=== PATIENT | female | born 1945 | race Caucasian/White ===

== ENCOUNTER 2017-07-27 22:40 | Inpatient (IN) | payer SELFPAY ==
[~2017-07-27] VITALS: Ht 165.1 cm; Wt 75.3 kg
[2017-07-27 22:53] VITALS: BP 136/44
[2017-07-27] MEDS ORDERED: SYN.1 PO (22:57)
[2017-07-27] MEDS ORDERED: LISI-420 PO (22:58)
[2017-07-27] MEDS ORDERED: SITA25TA3 PO (22:59)
[2017-07-27] MEDS ORDERED: METF1000 PO (22:59)
--- NOTE | 2017-07-27 23:01 | NUR ---
PT TAKEN TO BED 3
--- NOTE | 2017-07-27 23:02 | NUR ---
72 Y/O F W/C/O BRADYCARDIA, DIZZINESS, N/V X 30 MINUTES AGO. MED HX HTN, DM, HIGH CHOLESTEROL, HYPOTHYROIDISM. FAMILY STATES THERE WAS A SITUATION AT HOME THAT MADE PT UPSET, THUS CAUSING THE DIZZNESS. FAMILY DENIES ANY LOC/KO.
[2017-07-27] MEDS ORDERED: ATROPINE 1 MG/10 ML SYR IVP ONE (23:30)
[2017-07-28] VITALS (10 sets, daily range): BP systolic 129–155; BP diastolic 55–77
--- NOTE | 2017-07-28 00:03 | NUR ---
Dr. Carlson evaluating patient at bedside.
[2017-07-28] MEDS ORDERED: ONDANSETRON 4 MG/2 ML VIAL IVP ONE (00:05)
[2017-07-28 00:21] LABS: HEMATOCRIT 43.7 % (36-48); HEMOGLOBIN 14.3 g/dL (12.0-16.0); MEAN CORPUSCULAR HEMOGLOBIN 30 pg (27-31); MEAN CORPUSCULAR HGB CONC 33 g/dL (33-37); MEAN CORPUSCULAR VOLUME 93 fL (80-94); PLATELET COUNT (AUTO) 247 K/uL (140-450); RED BLOOD CELL COUNT(AUTO) 4.71 MIL/uL (4.20-5.40); RED CELL DISTRIBUTION WIDTH 13.5 % (11.6-13.7); WHITE BLOOD COUNT (AUTO) 10.5 K/uL (4.8-10.8)
[2017-07-28 00:23] LABS: LYMPHOCYTES % (MANUAL) 7 % (20-46); MONOCYTES % (MANUAL) 5 % (5-12)
[2017-07-28 00:28] LABS: PROTHROMBIN TIME 10.2 secs (10.8-13.4)
[2017-07-28 00:31] LABS: ALBUMIN 3.8 g/dL (3.4-5.0); ANION GAP 10.6 (8-16); ASPARTATE AMINOTRANSFERASE 197 U/L (15-37); CARBON DIOXIDE 22.2 mmol/L (21-32); CHLORIDE 96 mmol/L (98-107); CREATININE 1.7 mg/dL (0.6-1.3); GLUCOSE 246 mg/dL (74-106); TOTAL BILIRUBIN 0.4 mg/dL (0.0-1.0); UREA NITROGEN, BLOOD 36 mg/dL (7-18)
[2017-07-28 00:36] LABS: POTASSIUM 6.8 mmol/L (3.5-5.1); SODIUM SERUM 122 mmol/L (136-145)
[2017-07-28] MEDS ORDERED: VANCOMYCIN 1,000 MG in DEXTROSE 5% 250 ML IV ONE (00:45)
[2017-07-28] MEDS ORDERED: CALCIUM GLUCONATE 10% 1000 MG/10 ML VIAL IVP ONE (00:45)
[2017-07-28] MEDS ORDERED: DEXTROSE 50% 50 ML SYR IVP ONE (00:45)
[2017-07-28] MEDS ORDERED: INSULIN HUMAN REGULAR 100 UNITS/ML 10 ML VIAL IVP ONE (00:45)
[2017-07-28] MEDS ORDERED: PIPERACILLIN/TAZOBACTAM 3.375 GM in DEXTROSE 5% 50 ML IV ONE (00:45)
[2017-07-28] MEDS ORDERED: PIPERACILLIN/TAZOBACTAM 3.375 GM VIAL IV ONE (01:00)
[2017-07-28] MEDS ORDERED: CLOPIDOGREL 75 MG TAB PO ONE (01:10)
[2017-07-28] MEDS ORDERED: ASPIRIN 325 MG TAB PO ONE (01:10)
[2017-07-28] MEDS ORDERED: VANCOMYCIN 1,000 MG VIAL ONE (01:54)
--- NOTE | 2017-07-28 02:16 | NUR ---
ADMITTING MD AT BEDSIDE FOR REVAL
[2017-07-28 02:27] LABS: ANION GAP 15.9 (8-16); CARBON DIOXIDE 20.4 mmol/L (21-32); CHLORIDE 106 mmol/L (98-107); CREATININE 1.5 mg/dL (0.6-1.3); GLUCOSE 226 mg/dL (74-106); POTASSIUM 5.3 mmol/L (3.5-5.1); SODIUM SERUM 137 mmol/L (136-145); UREA NITROGEN, BLOOD 34 mg/dL (7-18)
[2017-07-28] MEDS ORDERED: ACETAMINOPHEN 325 MG TAB PO PRN (02:45)
[2017-07-28] MEDS ORDERED: HYDROcodone/APAP 7.5/325 MG 1 TAB PO PRN (02:45)
[2017-07-28] MEDS ORDERED: ONDANSETRON 4 MG/2 ML VIAL IVP PRN (02:45)
[2017-07-28] MEDS ORDERED: ENOXAPARIN 60 MG/0.6 ML SYR SUBQ SCH (03:05)
--- NOTE | 2017-07-28 03:10 | NUR ---
Patient will be admitted to care of DR ANGUIANO . Admited to ICU 5. Will go to room 5. Belongings list completed. Report to CECILE VALENTIN .
[2017-07-28] MEDS ORDERED: NACL 0.9% 2,500 ML IV ONE (03:20)
[2017-07-28] MEDS ORDERED: VANCOMYCIN PER PHARMACY MC PRN (03:25)
[2017-07-28] MEDS ORDERED: ENOXAPARIN 60 MG/0.6 ML SYR SUBQ ONE (03:25)
[2017-07-28] MEDS ORDERED: SODIUM POLYSTYRENE 15 GM/60 ML UDBTL PO SCH (03:35)
[2017-07-28] MEDS ORDERED: MECLIZINE 25 MG TAB PO PRN (03:35)
[2017-07-28] MEDS ORDERED: NITROGLYCERIN 0.4 MG TAB SL PRN (03:35)
--- NOTE | 2017-07-28 03:35 | NUR ---
RECEIVED REPORT FROM SAI VALENTIN. PATIENT ARRIVED TO UNIT FROM ER VIA [facility] WITH SAI VALENTIN AND ESTHER EMT. PATIENT IS AWAKE, ALERT, AND IS PRIMARILY ZAMBIAN SPEAKING. PATIENT ABLE TO SELF AMBULATE FROM [facility] TO ICU BED 5 WITH NO INCIDENT. BREATH SOUNDS ARE DIMINISHED. BOWEL SOUNDS ARE HYPERACTIVE. THERE IS A #20 IN THE LEFT AC. SITE IS DRY, INTACT, AND PATENT. ORIENTED PATIENT TO UNIT. PATIENT VERBALIZED UNDERSTANDING. HOB AT 30 DEGREES WITH BED IN LOW POSITION. CONTINUE TO MONITOR PATIENT.
[2017-07-28 03:40] LABS: CHOL/HDL RATIO 2.8 (1-4.5); FREE T4 (FREE THYROXINE) 1.53 ng/dL (0.76-1.46); MAGNESIUM 1.6 mg/dL (1.8-2.4); PHOSPHORUS 3.9 mg/dL (2.5-4.9); THYROID STIMULATING HORMONE 1.64 uIU/mL (0.34-3.74)
[2017-07-28] MEDS ORDERED: FUROSEMIDE 40 MG/4 ML VIAL IVP SCH (03:40)
--- NOTE | 2017-07-28 04:50 | NUR ---
16FR GOLDSMITH CATHETER INSERTED. PATIENT TOLERATED WELL. CONTINUE TO MONITOR PATIENT.
[2017-07-28] MEDS: PIPER/TAZO 3.375GM/D5W PREMIX 50 ML IV SCH ×3 (05:00→22:55)
--- NOTE | 2017-07-28 05:30 | NUR ---
RESIDENT DR. FINLEY AT BEDSIDE WITH US CLAY MOLDER FOR CENTRAL LINE PLACEMENT. CONSENT OBTAINED.
[2017-07-28 06:25] LABS: BASOPHILS # (AUTO) 0.4 K/uL (0.00-0.22); BASOPHILS % (AUTO) 4.4 % (0.0-2.0); EOSINOPHILS # (AUTO) 0.1 K/uL (0-0.4); EOSINOPHILS % (AUTO) 0.6 % (0.0-4.0); HEMOGLOBIN 12.1 g/dL (12.0-16.0); LYMPHOCYTES % (AUTO) 11.2 % (20.5-51.1); MEAN CORPUSCULAR HEMOGLOBIN 30 pg (27-31); MEAN CORPUSCULAR HGB CONC 33 g/dL (33-37); MEAN CORPUSCULAR VOLUME 92 fL (80-94); MONOCYTES # (AUTO) 0.6 K/uL (0.8-1.0); MONOCYTES % (AUTO) 6.9 % (1.7-9.3); NEUTROPHILS # (AUTO) 6.9 K/uL (1.8-7.7); NEUTROPHILS % (AUTO) 76.9 % (42.2-75.2); PLATELET COUNT (AUTO) 212 K/uL (140-450); RED BLOOD CELL COUNT(AUTO) 4.01 MIL/uL (4.20-5.40); RED CELL DISTRIBUTION WIDTH 13.3 % (11.6-13.7)
[2017-07-28 06:48] LABS: ANION GAP 13.1 (8-16); CARBON DIOXIDE 20.4 mmol/L (21-32); CHLORIDE 107 mmol/L (98-107); CREATININE 1.1 mg/dL (0.6-1.3); GLUCOSE 160 mg/dL (74-106); POTASSIUM 4.5 mmol/L (3.5-5.1); SODIUM SERUM 136 mmol/L (136-145); UREA NITROGEN, BLOOD 27 mg/dL (7-18)
--- NOTE | 2017-07-28 07:27 | NUR ---
PATIENT RESTING IN BED. ALL NEEDS ATTENDED TO DURING SHIFT. ENDORSED CONTINUITY OF CARE TO DANIEL VALENTIN.
--- NOTE | 2017-07-28 07:30 | NUR ---
RECEIVED REPORT FROM APPEALS AND GENERALIST CLERK NURSE CECILE, PT AWAKE, ALERT AND ORIENTED X4. VERBALLY RESPONSIBLE, PT ON PACER 12MA, 60PPM. BILATERAL LUNG SOUND CLEAR WITH CONTINUE O2 2L/MIN VIA NC. PERIPHERAL IV LINE ON LEFT ANTECUBITAL 20G, CENTRAL LINE ON RIGHT INTERNAL JUGULAR [id number]. PT IS ON NS BOLUS 2500ML. PT IS ON GOLDSMITH CATH 16FR WITH YELLOW COLORED URINE DRAIN. NO ACUTE DISTRESS NOTED, PT DENIES PAIN AT THIS TIME. CONTINUE TO MONITOR.
[2017-07-28] MEDS: LEVOTHYROXINE 0.1 MG TAB PO SCH (07:33)
--- NOTE | 2017-07-28 07:37 | NUR ---
PATIENT HAS BEEN SCREENED AND CATEGORIZED HIGH NUTRITION RISK. PATIENT WILL BE SEEN WITHIN 1-2 DAYS OF ADMISSION. 07/28/17 - 07/29/17 LESLIE BEASLEY MBA, RD
[2017-07-28] MEDS: NACL 0.9% 1,000 ML IV SCH ×3 (07:46→22:59)
[2017-07-28] MEDS: LACTOBACILLUS RHAMNOSUS GG 1 EACH CAP PO SCH (08:44)
[2017-07-28] MEDS: ASPIRIN 81 MG TAB.CHEW PO SCH (08:44)
[2017-07-28] MEDS: PANTOPRAZOLE 40 MG INJ VIAL IVP SCH (08:45)
[2017-07-28] MEDS: DOCUSATE SODIUM 100 MG GELCAP PO SCH ×2 (08:45→22:57)
--- NOTE | 2017-07-28 08:50 | NUR ---
DR. MEDINA CALLED. UPDATED ON PT'S CONDITION. PER DR. MEDINA EXTERNAL PACEMAKER TURNED OFF. PT IN SR WITH 2 DEGREE AV WATSON, MOBITZ TYPE 1. HR IN THE 40'S. PT DENIES ANY DISCOMFORTS. BP 150/67. Addendum: 07/28/17 at 1344 by Nieves Spencer RN SB COMPLETE HEART BLOCK NOT SR WITH 2ND DEGREE AV BLOCK
[2017-07-28] MEDS ORDERED: MAG SULF 2000 MG/WATER PREMIX 50 ML IV SCH (09:00)
[2017-07-28] MEDS ORDERED: METOPROLOL 25 MG TAB PO SCH (09:00)
[2017-07-28] MEDS ORDERED: LISINOPRIL 20 MG TAB PO SCH (09:00)
--- NOTE | 2017-07-28 09:00 | NUR ---
MEDICATION GIVEN TO PT, TOLERATED WELL. PT CONSUMED 25% BREAK FAST. CONTINUE TO MONITOR.
[2017-07-28] MEDS: metFORMIN 500 MG TAB PO SCH ×2 (09:22→22:57)
--- NOTE | 2017-07-28 10:10 | NUR ---
PT DONE WITH CT SCAN TO BRAIN WITHOUT CONTRAST, PT TOLERATED WELL, NO ACUTE DISTRESS, DENIES ANY DISCOMFORT NOTED. HR IN 40'S WITHOUT PACER, BP 155/65 CONTINUE TO MONITOR.
[2017-07-28] MEDS: BLOOD GLUCOSE MONITORING 1 DEV DEV FS SCH ×3 (11:53→20:00)
--- NOTE | 2017-07-28 12:30 | NUR ---
CFA SHOWS SB WITH 2ND DEGREE AV BLOCK HR 38 TO 39/MIN. PT DENIES ANY CHEST PAINS. NO DIZZINESS. BP 140/77. EXTERNAL PACEMAKER TURNED BACK ON MA 12, RATE 60/MIN. Addendum: 07/28/17 at 1318 by Nieves Spencer RN 3RD DEGREE AV BLOCK, NOT 2ND DEGREE
--- NOTE | 2017-07-28 13:19 | NUR ---
AT BEDSIDE TO CHECK PT, WILL FOLLOW THE ORDER.
--- NOTE | 2017-07-28 13:30 | NUR ---
TURN OFF THE EXTERNAL PACEMAKER PER 'S ORDER. PT'S HR IS IN 40'S, NO ACUTE DISTRESS, PT DENIES CHEST PAIN, NO DIZZINESS, NO N/V NOTED. Addendum: 07/28/17 at 1557 by Cecelia Kate RN ADDITIONAL ORDER FROM DR. MEDINA: TURN BACK ON PACE MAKER IF PT' HR BELOW 35 AND PT HAS CHEST PAIN, SOB, OR LOSS OF CONSCIOUSNESS.
--- NOTE | 2017-07-28 15:30 | NUR ---
FAMILY MEMBERS ARE BEDSIDE AT THIS TIME. NO ACUTE DISTRESS NOTED.
--- NOTE | 2017-07-28 16:30 | NUR ---
PT'S BS CHECKED. OFFER ORAL CARE, PT BRUSHED HER TEETH BY HERSELF. DENIES CHEST PAIN, NO SOB, HR IS IN 40'S.CONTINUE TO MONITOR.
[2017-07-28 17:52] LABS: BILIRUBIN,URINE NEGATIVE (NEGATIVE); BLOOD, URINE 3+ (NEGATIVE); COLOR,URINE YELLOW (YELLOW); LEUKOCYTE ESTERASE ,URINE NEGATIVE (NEGATIVE); NITRITE, URINE NEGATIVE (NEGATIVE); PH,URINE 5.5 (5.0-9.0); UGLUCOSE NEGATIVE (NEGATIVE)
[2017-07-28 18:44] LABS: APPEARANCE,URINE HAZY (CLEAR); RBC,URINE 20-50 /HPF (0-5); WBC,URINE 0-5 (RARE) /HPF (0-5)
--- NOTE | 2017-07-28 19:20 | NUR ---
REPORT TAKEN FROM DAY NURSE WITH RESUME CARE, PT IS ON CVP READING VIA CENTRAL LINE AT RIGHT IJ, LINE PATENT , DRESSING IN TACH. PT'S A,A,O X 4 WITH SLOV[place] SPEAKING ONLY, RESPOND WELL. GOLDSMITH CATH IN SITU AND GRAVITY TO FLOOR.
--- NOTE | 2017-07-28 19:20 | NUR ---
PATIENT RESTING IN BED. ENDORSED CONTINUITY OF CARE TO JOVAN VALENTIN. VS IS STABLE.
--- NOTE | 2017-07-28 20:00 | NUR ---
ORAL CARE DONE . REPOSITION DONE
--- NOTE | 2017-07-28 21:00 | NUR ---
DUE MEDICATIONS GIVEN WITH NO REACTION NOTED.
[2017-07-28] MEDS: ATORVASTATIN 20 MG TAB PO SCH (22:57)
--- NOTE | 2017-07-28 23:30 | NUR ---
PT'S ASLEEP, NO CP NO NAUSEA, NO VOMITING RESTING COMFORTABLE WITH SELF TURN, TOLERATING WELL.
[2017-07-29] VITALS (12 sets, daily range): BP systolic 108–161; BP diastolic 4–71
--- NOTE | 2017-07-29 | NUR ---
ACCU CHECK DONE RESULT DOCUMENT WITH NO ACTION NEEDED.
[2017-07-29] MEDS: BLOOD GLUCOSE MONITORING 1 DEV DEV FS SCH ×6 (00:42→20:02)
[2017-07-29] MEDS: VANCOMYCIN 1GM/DEXT 5% PREMIX 200 ML IV SCH (01:24)
--- NOTE | 2017-07-29 02:00 | NUR ---
REPOSITION DONE , NO C/O NAUSEA, VOMITING AND NO STRESS NOTED.
--- NOTE | 2017-07-29 04:00 | NUR ---
ACCU CHECK DONE, RESLT DOCUMENT. TOTAL BEDBATH GIVEN, ORAL CARE DOEN, SKIN CARE, PRIANAL CARE DONE. KEEP PT COMFORTAQBLE WITH NO CP, NO NAUSEA, NO VOMITING NO SOB NOTED. PT'S COMFORTABLE WITH REST AND ASLEEP ON HOB AT 30 HEAD UP WITH TOLERATING WELL.
[2017-07-29] MEDS: PIPER/TAZO 3.375GM/D5W PREMIX 50 ML IV SCH ×3 (04:55→21:08)
--- NOTE | 2017-07-29 06:00 | NUR ---
TOTAL CARE DONE , KEEP IN 30 HOB UP WITH TOLERATING WELL
[2017-07-29 06:18] LABS: BASOPHILS # (AUTO) 0.4 K/uL (0.00-0.22); BASOPHILS % (AUTO) 3.8 % (0.0-2.0); EOSINOPHILS # (AUTO) 0.1 K/uL (0-0.4); EOSINOPHILS % (AUTO) 0.6 % (0.0-4.0); HEMATOCRIT 38.1 % (36-48); HEMOGLOBIN 12.3 g/dL (12.0-16.0); LYMPHOCYTES # (AUTO) 1.1 K/uL (2.5-16.5); LYMPHOCYTES % (AUTO) 11.3 % (20.5-51.1); MEAN CORPUSCULAR HEMOGLOBIN 30 pg (27-31); MEAN CORPUSCULAR HGB CONC 32 g/dL (33-37); MEAN CORPUSCULAR VOLUME 92 fL (80-94); MONOCYTES # (AUTO) 0.6 K/uL (0.8-1.0); MONOCYTES % (AUTO) 6.2 % (1.7-9.3); NEUTROPHILS # (AUTO) 7.2 K/uL (1.8-7.7); NEUTROPHILS % (AUTO) 78.1 % (42.2-75.2); PLATELET COUNT (AUTO) 207 K/uL (140-450); RED BLOOD CELL COUNT(AUTO) 4.14 MIL/uL (4.20-5.40); RED CELL DISTRIBUTION WIDTH 14.1 % (11.6-13.7); WHITE BLOOD COUNT (AUTO) 9.4 K/uL (4.8-10.8)
[2017-07-29 06:53] LABS: CARBON DIOXIDE 23.6 mmol/L (21-32); CHLORIDE 107 mmol/L (98-107); CREATININE 0.9 mg/dL (0.6-1.3); GLUCOSE 156 mg/dL (74-106); POTASSIUM 3.6 mmol/L (3.5-5.1); SODIUM SERUM 138 mmol/L (136-145); UREA NITROGEN, BLOOD 18 mg/dL (7-18)
[2017-07-29 07:02] LABS: MAGNESIUM 1.8 mg/dL (1.8-2.4); PHOSPHORUS 3.1 mg/dL (2.5-4.9)
--- NOTE | 2017-07-29 07:30 | NUR ---
REPORT ENDORSE TO DAY NURSE RUIZ - RN WITH RESUME CARE.
--- NOTE | 2017-07-29 07:30 | NUR ---
RECEIVED REPORT FROM PM SHIFT. PT GCS 15. POLISH SPEAKING ONLY. BILATERAL PERRLA OBSERVED. DENIES CHEST PAIN. DENIES SOB. DENIES PAIN. DENIES NAUSEA. PT ON 2 L NC. TOLERATING WELL. BRADYCARDIA ON MONITOR. MD AWARE. ASYMPTOMATIC. SKIN INTACT. R IJ TRIPLE LUMEN NOTED. INTACT AND PATENT. BOWEL SOUND PRESENT X 4 QUADRANT. ABDOMEN SOFT, NONTENDER. GOLDSMITH CATHETER NOTED. DRAINING CLEAR, YELLOW URINE. FALL AND SAFETY PRECAUTION MAINTAINED. NO S/SX OF ACUTE DISTRESS NOTED. BED AT LOWEST SETTING. CALL LIGHT WITHIN REACH. WILL CONTINUE TO MONITOR FOR CHANGE.
[2017-07-29] MEDS: LEVOTHYROXINE 0.1 MG TAB PO SCH (07:39)
[2017-07-29] MEDS: NACL 0.9% 1,000 ML IV SCH ×3 (07:39→19:25)
--- NOTE | 2017-07-29 08:00 | NUR ---
PT EATING BREAKFAST. TOLERATING WELL.
[2017-07-29] MEDS: DOCUSATE SODIUM 100 MG GELCAP PO SCH ×2 (08:13→21:00)
[2017-07-29] MEDS: ASPIRIN 81 MG TAB.CHEW PO SCH (08:13)
[2017-07-29] MEDS: FUROSEMIDE 20 MG/2 ML VIAL IVP SCH (08:13)
[2017-07-29] MEDS: PANTOPRAZOLE 40 MG INJ VIAL IVP SCH (08:13)
[2017-07-29] MEDS: metFORMIN 500 MG TAB PO SCH ×2 (08:14→21:06)
[2017-07-29] MEDS: LACTOBACILLUS RHAMNOSUS GG 1 EACH CAP PO SCH (08:14)
--- NOTE | 2017-07-29 08:15 | NUR ---
MEDICATION ADMINISTERED ORDERED. TOLERATED WELL. WILL CONTINUE TO MONITOR FOR CHANGES.
[2017-07-29] MEDS: CALCIUM CARB/VIT-D 500 MG/200 IU 1 TAB PO SCH (09:04)
--- NOTE | 2017-07-29 09:55 | NUR ---
SPOKE WITH PT REGARDING SPUTUM COLLECTION VIA COMMISSARY PRODUCTION SUPERVISOR. PT STATES THAT SHE DOES NOT HAVE ANY PHLEGM. PER PT, WILL TELL STAFF WHEN SHE DOES HAVE PHLEGM.
--- NOTE | 2017-07-29 10:00 | NUR ---
AT BEDSIDE TO SEE PT. WILL F/U WITH NEW ORDERS.
--- NOTE | 2017-07-29 11:00 | NUR ---
PT DENIES SOB, DENIES CHEST PAIN. SLEEPING COMFORTABLY AT BEDSIDE.
--- NOTE | 2017-07-29 11:00 | NUR ---
07/29/17 RD INITIAL ASSESSMENT COMPLETED PLEASE REFER TO NUTRITION ASSESSMENT UNDER CARE ACTIVITY FOR ESTIMATED NUTRITIONAL NEEDS. RD RECOMMENDATIONS: 1. [facility] TOLERATED. 2. CONSULT RDN PRN. 3. RD WILL F/U 3-5 DAYS; MODERATE RISK. ANDRES PARKS MS, RDN
--- NOTE | 2017-07-29 12:00 | NUR ---
PT UP IN BED EATING LUNCH. TOLERATING WELL.
--- NOTE | 2017-07-29 13:15 | NUR ---
PT AMBULATE FROM BED TO COMMODE. VERY SMALL AMOUNT OF BM NOTED AFTER. PT SELF PERFORMED DEE CARE. AMBULATE WITH STEADY GAIT BACK TO BED. VITAL SIGNS WITHIN NORMAL. WILL CONTINUE TO ENCOURAGE INDEPENDENT ADLS AND MOBILITY.
--- NOTE | 2017-07-29 13:30 | NUR ---
SPOKE TO DR. GOLD REGARDING IV MAINTENENCE Addendum: 07/29/17 at 1554 by Jose Alfredo Blackwell RN REGARDING IV FLUIDS. PER WILL KEEP RATE IS UNTIL FURTHER ORDERS.
--- NOTE | 2017-07-29 14:00 | NUR ---
PT RESTING IN BED. NO S/SX OF ACUTE DISTRESS NOTED. WILL CONTINUE TO MONITOR.
--- NOTE | 2017-07-29 15:00 | NUR ---
PT DENIES CHEST PAIN, DENIES SOB, DENIES PAIN. WILL CONTINUE TO MONITOR.
--- NOTE | 2017-07-29 16:30 | NUR ---
PT ATE DINNER. TOLERATED WELL.
--- NOTE | 2017-07-29 17:00 | NUR ---
PT A/O X4. DENIES PAIN. DENIES CHEST PAIN. DENIES SOB.
--- NOTE | 2017-07-29 18:00 | NUR ---
FAMILY AT BEDSIDE TO SEE PT. NO S/SX OF ACUTE DISTRESS NOTED. WILL CONTINUE TO MONITOR.
--- NOTE | 2017-07-29 19:17 | NUR ---
REPORT TAKEN FROM DAY NURSE AUGUSTO- RN WITH RESUME CARE. PT'S STEP DOWN TO TELE WITH MAY MOVE OUT IN THE MORNING DUE TO LIABLE FOR BRADYCARDIA. PT'S A,A,O X 4 WITH AZERI SPEAKING ONLY. PT'S RESTING COMFOETABLE WITH NO CP, NO SOB, NO DISTRESS NOTED.
--- NOTE | 2017-07-29 19:18 | NUR ---
REPORT GIVEN TO HOMERO TAMAYO. PT IS STABLE.
--- NOTE | 2017-07-29 19:38 | NUR ---
PT AMBULATE TO BEDSIDE COMMODE , HAD BOWEL MOVEMENT X 1 WITH TOLERATING WELL. NO CP. NO SOB. NO DISTRESS NOTED.
--- NOTE | 2017-07-29 20:00 | NUR ---
PT IS RESTING COMFORTABLE WITH RENDING CARE DONE .SKIN CARE DONE
[2017-07-29] MEDS: ATORVASTATIN 20 MG TAB PO SCH (21:06)
--- NOTE | 2017-07-29 22:23 | NUR ---
REPORT CALL AND ENDORSE TO ROSHAN Haddad RN WITH RESUME CARE. PT WILL CONTINUE PRESENT TREATMENT . NOTE SPECIALIST NEED TO FOLLOW UP IN THE SUNDAY MORNING. PT'S AWAKE, ALERT, ORIENTED X 4 WITH TAMAZIGHT ONLY, AMBULATE UP TO BEDSIDE COMMODE. ORALLY TAKEN WELL. PT HAD NIGHT SNACK WITH TOLERATING WELL. GOLDSMITH CATH SIZE 16 IN SITU WITH GRAVITY TO FLOOR. PT WILL MOVE TO ROOM 119 B WITH ACLS TRANSPORT , ACCOMPANY BY RONI Haddad RN WITH TEAM VIA NAEEM.
--- NOTE | 2017-07-30 00:05 | NUR ---
Patient's Plan of Care was discussed and reviewed with MONOGRAM MAKER: ROSHAN WARD.
[2017-07-30 00:08] VITALS: BP 127/45
--- NOTE | 2017-07-30 00:10 | NUR ---
PATIENT STABLE DENIES ANY SOB OR CHEST PAIN.PATIENT ABLE TO MAKE NEEDS KNOWN.SCD'S TO BLE IN PLACE.WILL CONTINUE TO MONITOR.CALL LIGHT WITHIN REACH.
[2017-07-30] MEDS: BLOOD GLUCOSE MONITORING 1 DEV DEV FS SCH ×3 (00:30→08:11)
--- NOTE | 2017-07-30 00:55 | NUR ---
MD RESIDENT FINLEY WAS CALLED AND IS AWARE THAT PATIENT'S HEART RATE IS 42 AND I ASKED HER IF SHE WOULD LIKE THE TELE PARAMETERS TO CHANGE SHE SAID YES PARAMETERS TO TELEMONITOR ARE FOLLOWS IF THE HR IS BELOW 40 IT WILL ALARM AND RESIDENT SHOULD BE NOTIFIED.YAA FABIAN AWARE.MD JONAS WILL PUT THE ORDER IN.
[2017-07-30] MEDS: VANCOMYCIN 1GM/DEXT 5% PREMIX 200 ML IV SCH (01:18)
--- NOTE | 2017-07-30 02:00 | NUR ---
PATIENT CONTINUES TO BE ASSISTED TO THE BEDSIDE COMMODE AND BACK TO BED PATIENT TOLERATES ACTIVITY WELL. PATIENT DENIES ANY PAIN OR SOB. CALL LIGHT WITHIN REACH.
--- NOTE | 2017-07-30 04:05 | NUR ---
PATIENT SLEEPING IN NO DISTRESS WILL CONTINUE TO MONITOR.
[2017-07-30 04:16] VITALS: BP 155/67
[2017-07-30] MEDS: PIPER/TAZO 3.375GM/D5W PREMIX 50 ML IV SCH (05:44)
[2017-07-30] MEDS: LEVOTHYROXINE 0.1 MG TAB PO SCH (05:47)
[2017-07-30 06:51] LABS: BASOPHILS # (AUTO) 0.2 K/uL (0.00-0.22); BASOPHILS % (AUTO) 1.8 % (0.0-2.0); EOSINOPHILS # (AUTO) 0.1 K/uL (0-0.4); EOSINOPHILS % (AUTO) 0.8 % (0.0-4.0); HEMATOCRIT 36.2 % (36-48); HEMOGLOBIN 12.2 g/dL (12.0-16.0); LYMPHOCYTES # (AUTO) 1.6 K/uL (2.5-16.5); LYMPHOCYTES % (AUTO) 15.5 % (20.5-51.1); MEAN CORPUSCULAR HEMOGLOBIN 31 pg (27-31); MEAN CORPUSCULAR HGB CONC 34 g/dL (33-37); MEAN CORPUSCULAR VOLUME 93 fL (80-94); MONOCYTES # (AUTO) 0.8 K/uL (0.8-1.0); MONOCYTES % (AUTO) 8.2 % (1.7-9.3); NEUTROPHILS # (AUTO) 7.3 K/uL (1.8-7.7); NEUTROPHILS % (AUTO) 73.7 % (42.2-75.2); PLATELET COUNT (AUTO) 198 K/uL (140-450); RED CELL DISTRIBUTION WIDTH 13.3 % (11.6-13.7)
--- NOTE | 2017-07-30 07:15 | NUR ---
PATIENT STABLE REPORT ENDORSED TO RN RODRIGUEZ SHE WILL RESUME CARE.
--- NOTE | 2017-07-30 07:15 | NUR ---
RECEIVED REPORT FROM SUPERVISOR BLASTING RN. PATIENT IS AAOX4, RESPIRATORY EFFORT IS EVEN AND UNLABORED. NO SIGNS AND SYMPTOMS OF ACUTE DISTRESS NOTED AT THIS TIME. PATIENT HAS RIGHT IJ, TRIPLE LUMEN CATHETER IN AND INFUSING NS AT 10 ML/HR. SITE IS CLEAN, DRY, PATENT AND INTACT. GOLDSMITH CATHETER TO GRAVITY IS IN PLACE. DISCUSSED PLAN OF CARE WITH PATIENT AND SHE VERBALIZED UNDERSTANDING. BED IN LOWEST POSITION, CALL LIGHT PLACED WITHIN REACH, SIDERAILS UP X2. WILL CONTINUE TO MONITOR.
[2017-07-30 07:18] LABS: ANION GAP 12.2 (8-16); CARBON DIOXIDE 22.5 mmol/L (21-32); CHLORIDE 108 mmol/L (98-107); CREATININE 1.1 mg/dL (0.6-1.3); GLUCOSE 169 mg/dL (74-106); POTASSIUM 3.7 mmol/L (3.5-5.1); SODIUM SERUM 139 mmol/L (136-145); UREA NITROGEN, BLOOD 21 mg/dL (7-18)
[2017-07-30 07:31] LABS: MAGNESIUM 1.6 mg/dL (1.8-2.4); PHOSPHORUS 3.1 mg/dL (2.5-4.9)
[2017-07-30 08:00] VITALS: BP 128/64
[2017-07-30] MEDS: ASPIRIN 81 MG TAB.CHEW PO SCH (09:52)
[2017-07-30] MEDS: DOCUSATE SODIUM 100 MG GELCAP PO SCH (09:52)
[2017-07-30] MEDS: CALCIUM CARB/VIT-D 500 MG/200 IU 1 TAB PO SCH (09:53)
[2017-07-30] MEDS: metFORMIN 500 MG TAB PO SCH (09:53)
[2017-07-30] MEDS: LACTOBACILLUS RHAMNOSUS GG 1 EACH CAP PO SCH (09:53)
[2017-07-30] MEDS: PANTOPRAZOLE 40 MG INJ VIAL IVP SCH (09:53)
[2017-07-30] MEDS: FUROSEMIDE 20 MG/2 ML VIAL IVP SCH (09:54)
--- NOTE | 2017-07-30 10:57 | NUR ---
CM NOTE SPOKE Benito/ ROXI, PIPE PRODUCTION WORKER FOR [facility]. AWARE OF REQUEST FOR TRANSFER FROM DR. NOGUERA AND WILL BE WORKING ON GETTING AN ICU BED. Addendum: 07/30/17 at 1524 by Jarek Menjivar RN PATIENT TO BE TRANSFERRED BY [facility] GOING TO [facility] ICU, BED 231. ETA 1300. DORCAS MERCADO & AYLEEN VALENTIN MADE AWARE. # FOR REPORT: [phone]. FACESHEET FAXED TO [facility] SUPERVISOR'S OFFICE / FAX# [phone]
[2017-07-30] MEDS ORDERED: ATOR20TA40 PO (11:51)
[2017-07-30] MEDS ORDERED: CALC-846 PO (11:51)
[2017-07-30] MEDS ORDERED: DOCU-299 PO (11:51)
[2017-07-30] MEDS ORDERED: GLUC-805 FS (11:51)
[2017-07-30] MEDS ORDERED: ASPI81CT95 PO (11:51)
[2017-07-30] MEDS ORDERED: LAS20I IVP (11:51)
[2017-07-30] MEDS ORDERED: ACET-1182 PO (11:51)
[2017-07-30] MEDS ORDERED: VANC1PLA9 IV (11:52)
[2017-07-30] MEDS ORDERED: Vancomycin Per Pharmacy MC (11:52)
[2017-07-30] MEDS ORDERED: NITR0.4T1 SL (11:52)
[2017-07-30] MEDS ORDERED: MECL-272 PO (11:52)
[2017-07-30] MEDS ORDERED: SYN.1 PO (11:52)
[2017-07-30] MEDS ORDERED: PANT40PD7 IVP (11:52)
[2017-07-30] MEDS ORDERED: SITA50TA3 PO (11:52)
[2017-07-30] MEDS ORDERED: LACT10CA PO (11:52)
[2017-07-30] MEDS ORDERED: PIPE1SOL IV (11:52)
[2017-07-30] MEDS ORDERED: ACET-9529 PO (11:52)
[2017-07-30] MEDS ORDERED: GLU500 PO (11:52)
[2017-07-30] MEDS ORDERED: ONDA2SOL45 IVP (11:52)
[2017-07-30 12:00] VITALS: BP 156/69
--- NOTE | 2017-07-30 12:15 | NUR ---
BS 181, PATIENT HAS NO COVERAGE.
[2017-07-30] MEDS ORDERED: AMLO10TA PO (12:29)
--- NOTE | 2017-07-30 13:15 | NUR ---
[facility] HERE TO HEALTH COMMUNICATIONS SPECIALIST PATIENT TO TRANSPORT TO [facility] FOR ICD PLACEMENT. PATIENT IS AAOX4, HAS NS INFUSING AT 10ML/HR TO RIGHT INTRAJUGULAR LINE, TRIPLE LUMEN. SALINE LOCKED ALL PORTS FOR TRANSFER. SITE IS CLEAN, DRY, PATENT AND INTACT. HAS NO SIGNS AND SYMPTOMS OF DISTRESS NOTED AT THIS TIME. GOLDSMITH CATHETER IS IN PLACE. GAVE REPORT TO [facility] STAFF. FAMILY AT THE BEDSIDE. ID BAND REMOVED. PATIENT REFUSED PNA, AND FLU VACCINE.
--- NOTE | 2017-07-30 13:30 | NUR ---
PT NOTES CHART REVIEWED, BUT UNABLE TO SEE PATIENT D/T BEING PREPARED FOR D/C FROM HOSPITAL, RN AND FAMILY AT BEDSIDE. PROVIDED EXERCISES HANDOUT FOR FAMILY FOR DAILY PARTICIPATION, FAMILY VERBALIZED UNDERSTANDING. PVEx1 Addendum: 07/30/17 at 1509 by Christine Gleason PT PHYSICAL THERAPY CO-SIGN The Physical Therapy Progress Notes documented by Flight Surgeon have been reviewed. Reviewed/Co-Signed by: Christine Gleason PT Documentation Done by: NIURKA GREENE PTA
[2017-07-30] MEDS ORDERED: VANCOMYCIN 1,250 MG in NACL 0.9% 250 ML IV SCH (17:00)
== END 2017-07-30 13:15 | disposition short-term general hospital (02) | DRG 871 ==
LOC: MED 22:40 → MIC 07-28 02:49 → MTU 07-29 22:58
PROVIDERS: ADMIT Family Medicine; ATTEND Family Medicine
PROC: 02HV33Z Insertion of Infusion Device into Superior Vena Cava, Percutaneous Approach (ICD-10-PCS; principal; 2017-07-28)
PROC: B543ZZA Ultrasonography of Right Jugular Veins, Guidance (ICD-10-PCS; 2017-07-28)
DX: A41.9 Sepsis, unspecified organism (principal); R65.21 Severe sepsis with septic shock; J69.0 Pneumonitis due to inhalation of food and vomit; J96.00 Acute respiratory failure, unspecified whether with hypoxia or hypercapnia; N17.0 Acute kidney failure with tubular necrosis; D68.59 Other primary thrombophilia; E11.51 Type 2 diabetes mellitus with diabetic peripheral angiopathy without gangrene; I50.43 Acute on chronic combined systolic (congestive) and diastolic (congestive) heart failure; I42.0 Dilated cardiomyopathy; E87.1 Hypo-osmolality and hyponatremia; N39.0 Urinary tract infection, site not specified; I44.2 Atrioventricular block, complete; E83.42 Hypomagnesemia; E87.5 Hyperkalemia; E78.00 Pure hypercholesterolemia, unspecified; E03.9 Hypothyroidism, unspecified; R74.0 Nonspecific elevation of levels of transaminase and lactic acid dehydrogenase [LDH]; I45.9 Conduction disorder, unspecified; M06.9 Rheumatoid arthritis, unspecified; R00.1 Bradycardia, unspecified; E87.8 Other disorders of electrolyte and fluid balance, not elsewhere classified; I11.0 Hypertensive heart disease with heart failure; E83.51 Hypocalcemia; E66.3 Overweight; Z68.26 Body mass index [BMI] 26.0-26.9, adult; Z83.3 Family history of diabetes mellitus; Z90.49 Acquired absence of other specified parts of digestive tract; Z82.49 Family history of ischemic heart disease and other diseases of the circulatory system
CPT/HCPCS: 36415; 36600; 70450; 71010; 76700; 80048; 80053; 80202; 81001; 82140; 82150; 82803; 82948; 83036; 83605; 83690; 83735; 83880; 84100; 84439; 84443; 84484; 85025; 85610; 85730; 87040; 87081; 87086; 93005; 93880; 93925; 93970; 96365; 96367; 96372; 96375; 99291; C9113; J0461; J0610; J1644; J1650; J1815; J1940; J2405; J2543; J3370; J3475; J7030; Q0092